=== PATIENT | female | born 1955 | race Hispanic/Latino ===

== ENCOUNTER 2022-11-18 01:01 | Emergency (ER) | payer MEDICARE, OTHER ==
[~2022-11-18] VITALS: Ht 157.5 cm; Wt 127.0 kg
[2022-11-18] VITALS (11 sets, daily range): BP systolic 87–145; BP diastolic 37–116
[~2022-11-18 01:01] MED LIST: BACTRIM DS1 TAB PO; CELEXA40 MG OR; CITALOPRAM40 MG OR; COZAAR50 MG PO; EQ ASPIRIN325 MG OR; FISH OIL1200 M1 OR; HYDROCHLOROT12.5 MG OR; LORTAB 5 OR; LOTREL1 CA1 OR; MEDDOSEPAK OR; METOPROLOL100 MG OR; NEURONTIN100 MG OR; SIMVASTATIN40 MG OR; ZESTRIL10 M1 OR; ZOCOR20 MG OR; ZOCOR40 MG OR
[2022-11-18] MEDS ORDERED: LIPITOR20 M1 PO (02:07)
[2022-11-18] MEDS ORDERED: ASPIRIN81 MG PO (02:10)
[2022-11-18] MEDS ORDERED: BASAGLAR K100 UNIT/M SC (02:12)
[2022-11-18] MEDS ORDERED: DEPAKOTE125 MG PO (02:13)
[2022-11-18] MEDS ORDERED: FUROSEMIDE20 MG PO (02:14)
[2022-11-18] MEDS ORDERED: GABAPENTIN100 MG PO (02:15)
[2022-11-18] MEDS ORDERED: KLOR-CON M2020 MEQ PO (02:16)
[2022-11-18] MEDS ORDERED: LEVOTHYROXIN50 MCG PO (02:17)
[2022-11-18] MEDS ORDERED: OZEMPIC2 MG/1.5 M SC (02:20)
[2022-11-18] MEDS ORDERED: REPAGLINIDE0.5 MG PO (02:21)
[2022-11-18] MEDS ORDERED: PROZAC20 MG PO (02:22)
== END 2022-11-18 04:28 | disposition home or self-care (01) ==
LOC: ED 01:01
DX: S00.03XA Contusion of scalp, initial encounter (principal); I10 Essential (primary) hypertension; F03.90 Unspecified dementia, unspecified severity, without behavioral disturbance, psychotic disturbance, mood disturbance, and anxiety; W01.198A Fall on same level from slipping, tripping and stumbling with subsequent striking against other object, initial encounter; Y92.002 Bathroom of unspecified non-institutional (private) residence as the place of occurrence of the external cause; Z86.73 Personal history of transient ischemic attack (TIA), and cerebral infarction without residual deficits

== ENCOUNTER 2024-09-28 21:15 | Inpatient (IN) | payer MEDICARE, OTHER ==
[2024-09-28] VITALS (7 sets, daily range): BP systolic 81–100; BP diastolic 46–59
[~2024-09-28] VITALS: Ht 160 cm; Wt 87.8 kg
[~2024-09-28 21:15] MED LIST changes: +ASPIRIN81 MG PO; +BASAGLAR K100 UNIT/M SC; +DEPAKOTE125 MG PO; +FUROSEMIDE20 MG PO; +GABAPENTIN100 MG PO; +KLOR-CON M2020 MEQ PO; +LEVOTHYROXIN50 MCG PO; +LIPITOR20 M1 PO; +OZEMPIC2 MG SC; +PROZAC10 MG PO; +REPAGLINIDE0.5 MG PO
[2024-09-28] MEDS ORDERED: SODIUM CHLORIDE 0.9% 1,000 ML IV ONE ×2 (21:30→23:10)
[2024-09-28 22:01] LABS: BASO% 0.2 % (0-3); HEMATOCRIT 43.3 % (37.0-47.0); HEMOGLOBIN 13.8 g/dl (12.0-16.0); IMMATURE GRANULOCYTES 0.2 % (0.0-5.0); LYMPH% 9.8 % (15-41); MEAN CELL VOLUME 98.6 fL CALC (80.0-100.0); MEAN CORPUSCULAR HGB 31.4 pG CALC (26.0-32.0); MEAN CORPUSCULAR HGB CONC 31.9 g/dL CAL (32.0-36.0); MONO% 11.4 % (2-13); NEUT# 6.86 thou/uL (2.00-7.15); NEUT% 78.4 % (42-76); RED BLOOD COUNT 4.39 mill/uL (4.20-5.60); RED CELL DISTRI WIDTH 13.5 % (11.5-15.5)
[2024-09-28 22:17] LABS: ALBUMIN 3.8 g/dL (3.2-5.0); ALKALINE PHOSPHATASE 48 u/l (38-126); ANION GAP 14 (6-22 (CALC)); BUN 20 mg/dL (8-23); BUN/CREATININE RATIO 16 (12-20 (CALC)); CARBON DIOXIDE 23 mmol/l (22-30); CHLORIDE 110 mmol/l (95-108); CREATININE 1.3 mg/dL (0.5-1.0); ESTIMATED GFR 44 ML/MIN (>=90 (CALC)); POTASSIUM 3.9 mmol/l (3.5-5.1); SGOT/AST 27 u/l (9-36); SODIUM 143 mmol/l (137-146); TOTAL PROTEIN 7.2 g/dL (6.3-8.2)
[2024-09-28 22:18] LABS: BILIRUBIN, TOTAL 1.4 mg/dL (0.02-1.3)
[2024-09-28 22:52] LABS: URINE BILIRUBIN - DIPSTICK Negative (NEGATIVE); URINE BLOOD DIPSTICK Negative (NEGATIVE); URINE GLUCOSE - DIPSTICK >=1000 mg/dL (NEGATIVE); URINE KETONE Trace mg/dL (NEGATIVE); URINE LEUK ESTERASE Negative (NEGATIVE); URINE NITRITE - DIPSTICK Negative (Negative); URINE PH 5.5 (4.5-8.0); URINE PROTEIN - DIPSTICK Trace mg/dL (NEG-TRACE); URINE SPECIFIC GRAVITY 1.015
[2024-09-28 22:54] LABS: URINE COLOR Yellow
[2024-09-28] MEDS ORDERED: JARDIANCE25 MG PO (23:07)
[2024-09-28] MEDS ORDERED: cefTRIAXone SODIUM 2 GM in SODIUM CHLORIDE 0.9% 100 ML IV ONE (23:10)
[2024-09-28] MEDS ORDERED: AZITHROMYCIN 500 MG in SODIUM CHLORIDE 0.9% 500 ML IV ONE (23:10)
[2024-09-28] MEDS ORDERED: IBUPROFEN 800 MG/TAB PO PRN (23:30)
[2024-09-28] MEDS ORDERED: ENOXAPARIN SODIUM 40 MG/0.4 ML SYR SC ONE (23:30)
[2024-09-28] MEDS ORDERED: Polyethylene Glycol 3350 17 GM/PKT PO PRN (23:30)
[2024-09-28] MEDS ORDERED: ONDANSETRON 4 MG/TAB ODT PO PRN (23:30)
[2024-09-28] MEDS ORDERED: SODIUM CHLORIDE 0.9% 1,000 ML IV PRN (23:30)
[2024-09-28] MEDS ORDERED: ALUM & MAG HYDROX-SIMETHICONE 30 ML PO PRN (23:30)
[2024-09-28] MEDS ORDERED: FAMOTIDINE 10MG/ML 2ML SDV IV PRN (23:30)
[2024-09-28] MEDS ORDERED: ONDANSETRON HCl 4 MG/2 ML SDV IV PRN (23:30)
[2024-09-29] VITALS (20 sets, daily range): BP systolic 98–134; BP diastolic 60–73
[2024-09-29] MEDS ORDERED: MIRALAX17 GM PO (00:10)
[2024-09-29] MEDS ORDERED: BUSPAR5 MG PO (00:12)
[2024-09-29] MEDS ORDERED: DULCOLAX10 MG RE (00:15)
[2024-09-29] MEDS ORDERED: GERI-TUSSI100 MG/51 PO (00:18)
[2024-09-29] MEDS ORDERED: DEXTROSE 250 ML IV PRN (15:05)
[2024-09-29] MEDS ORDERED: ASPIRIN 81 MG/TAB PO SCH (15:30)
[2024-09-29] MEDS ORDERED: INSULIN LISPRO 100 UNITS/ML ML SC SCH (17:00)
[2024-09-29] MEDS ORDERED: busPIRone HCL 5 MG/TAB PO SCH (21:00)
[2024-09-29] MEDS ORDERED: VALPROIC ACID 250 MG/CAP PO SCH (21:00)
[2024-09-29] MEDS ORDERED: AZITHROMYCIN 500 MG in SODIUM CHLORIDE 0.9% 250 ML IV SCH (23:00)
[2024-09-30] VITALS (7 sets, daily range): BP systolic 138–142; BP diastolic 77–80
[2024-09-30] MEDS ORDERED: LEVOTHYROXINE SODIUM 75 MCG/TAB PO SCH (06:00)
[2024-09-30 06:05] LABS: BASO% 0.6 % (0-3); EOS% 0.4 % (0-8); HEMOGLOBIN 12.1 g/dl (12.0-16.0); IMMATURE GRANULOCYTES 0.4 % (0.0-5.0); LYMPH% 17.7 % (15-41); MEAN CELL VOLUME 99.5 fL CALC (80.0-100.0); MEAN CORPUSCULAR HGB 32.4 pG CALC (26.0-32.0); MEAN CORPUSCULAR HGB CONC 32.5 g/dL CAL (32.0-36.0); MONO% 13.5 % (2-13); NEUT# 4.66 thou/uL (2.00-7.15); NEUT% 67.4 % (42-76); RED BLOOD COUNT 3.74 mill/uL (4.20-5.60); RED CELL DISTRI WIDTH 13.4 % (11.5-15.5)
[2024-09-30 06:10] LABS: HEMATOCRIT 37.2 % (37.0-47.0)
[2024-09-30 06:15] LABS: BILIRUBIN, TOTAL 0.9 mg/dL (0.02-1.3); CREATININE 0.8 mg/dL (0.5-1.0); POTASSIUM 3.4 mmol/l (3.5-5.1)
[2024-09-30 06:26] LABS: ALBUMIN 2.7 g/dL (3.2-5.0); TOTAL PROTEIN 5.7 g/dL (6.3-8.2)
[2024-09-30] MEDS ORDERED: FLUoxetine HCL 10 MG/CAP PO SCH (09:00)
[2024-09-30] MEDS ORDERED: NYSTATIN 1500 MU/BTL TOP SCH (14:00)
[2024-10-01] VITALS (7 sets, daily range): BP systolic 120–153; BP diastolic 58–89
[2024-10-01 05:30] LABS: BASO% 0.5 % (0-3); EOS% 2.7 % (0-8); HEMATOCRIT 38.3 % (37.0-47.0); HEMOGLOBIN 12.3 g/dl (12.0-16.0); IMMATURE GRANULOCYTES 0.4 % (0.0-5.0); LYMPH% 28.5 % (15-41); MEAN CELL VOLUME 99.7 fL CALC (80.0-100.0); MEAN CORPUSCULAR HGB CONC 32.1 g/dL CAL (32.0-36.0); MONO% 8.2 % (2-13); NEUT# 4.46 thou/uL (2.00-7.15); NEUT% 59.7 % (42-76); RED BLOOD COUNT 3.84 mill/uL (4.20-5.60); RED CELL DISTRI WIDTH 13.3 % (11.5-15.5)
[2024-10-01 05:31] LABS: ALBUMIN 2.6 g/dL (3.2-5.0); BILIRUBIN, TOTAL 0.7 mg/dL (0.02-1.3); CREATININE 0.8 mg/dL (0.5-1.0); MAGNESIUM 1.8 mg/dL (1.6-2.3); POTASSIUM 3.3 mmol/l (3.5-5.1); TOTAL PROTEIN 5.5 g/dL (6.3-8.2)
[2024-10-01] MEDS ORDERED: FUROSEMIDE 40 MG/4 ML SDV IV SCH (10:30)
[2024-10-01] MEDS ORDERED: LOSARTAN Potassium 50 MG/TAB PO SCH (21:00)
[2024-10-02 05:07] LABS: BASO% 0.5 % (0-3); EOS% 2.6 % (0-8); HEMATOCRIT 39.5 % (37.0-47.0); HEMOGLOBIN 13.3 g/dl (12.0-16.0); IMMATURE GRANULOCYTES 0.7 % (0.0-5.0); LYMPH% 26.8 % (15-41); MEAN CORPUSCULAR HGB 31.7 pG CALC (26.0-32.0); MEAN CORPUSCULAR HGB CONC 33.7 g/dL CAL (32.0-36.0); MONO% 11.9 % (2-13); NEUT# 4.69 thou/uL (2.00-7.15); NEUT% 57.5 % (42-76); RED BLOOD COUNT 4.2 mill/uL (4.20-5.60); RED CELL DISTRI WIDTH 12.9 % (11.5-15.5)
[2024-10-02 05:41] LABS: ALBUMIN 2.9 g/dL (3.2-5.0); BILIRUBIN, TOTAL 0.9 mg/dL (0.02-1.3); CREATININE 0.7 mg/dL (0.5-1.0); MAGNESIUM 1.8 mg/dL (1.6-2.3); POTASSIUM 3.3 mmol/l (3.5-5.1); TOTAL PROTEIN 5.9 g/dL (6.3-8.2)
[2024-10-02 06:11] VITALS: BP 127/65
[2024-10-02 07:00] VITALS: BP 140/83
[2024-10-02 08:35] VITALS: BP 140/83
[2024-10-02] MEDS ORDERED: FUROSEMIDE 20 MG/TAB PO SCH (09:00)
[2024-10-02] MEDS ORDERED: FUROSEMIDE20 MG PO (09:38)
[2024-10-02] MEDS ORDERED: OMNICEF300 MG PO (09:39)
== END 2024-10-02 13:00 | DRG 194 ==
LOC: ED 21:15 → ED-I 21:33 → ED 21:33 → ED-I 23:05 → ED 23:29 → ED-I 23:30 → MS2 23:30
PROVIDERS: Family Medicine; Nurse Practitioner Family; ADMIT Internal Medicine; ATTEND Internal Medicine
DX: J18.9 Pneumonia, unspecified organism (principal); I13.0 Hypertensive heart and chronic kidney disease with heart failure and stage 1 through stage 4 chronic kidney disease, or unspecified chronic kidney disease; E11.22 Type 2 diabetes mellitus with diabetic chronic kidney disease; I50.9 Heart failure, unspecified; N18.9 Chronic kidney disease, unspecified; E11.40 Type 2 diabetes mellitus with diabetic neuropathy, unspecified; G30.9 Alzheimer's disease, unspecified; F02.80 Dementia in other diseases classified elsewhere, unspecified severity, without behavioral disturbance, psychotic disturbance, mood disturbance, and anxiety; I69.919 Unspecified symptoms and signs involving cognitive functions following unspecified cerebrovascular disease; F01.50 Vascular dementia, unspecified severity, without behavioral disturbance, psychotic disturbance, mood disturbance, and anxiety; E03.9 Hypothyroidism, unspecified; L98.419 Non-pressure chronic ulcer of buttock with unspecified severity; I71.40 Abdominal aortic aneurysm, without rupture, unspecified; Z20.822 Contact with and (suspected) exposure to COVID-19; Z79.84 Long term (current) use of oral hypoglycemic drugs; Z79.85 Long-term (current) use of injectable non-insulin antidiabetic drugs
CPT/HCPCS: J0456; J0696; J1650; J1940